=== PATIENT | male | born 1955 | race Caucasian/White ===

== ENCOUNTER 2024-05-05 21:25 | Emergency (ER) | payer MEDICARE, OTHER ==
[2024-05-05] MEDS: Lactated Ringers 1,000 ML IV SCH (22:15)
[2024-05-05 22:23] LABS: BASOPHILS ABSOLUTE AUTO 0.03 K/uL (0.00-0.10); BASOPHILS PERCENT AUTO 0.2 % (0.1-1.3); EOSINOPHILS PERCENT AUTO 0.1 % (0.0-5.4); HEMOGLOBIN 12.1 g/dL (12.9-16.9); IMMATURE GRAN ABSOLUTE AUTO 0.05 K/uL (0.00-0.23); IMMATURE GRAN PERCENT AUTO 0.4 % (0.0-0.7); LYMPHOCYTES ABSOLUTE AUTO 0.89 K/uL (0.8-3.3); LYMPHOCYTES PERCENT AUTO 7.3 % (11.4-47.7); MEAN CORPUSCULAR HEMOGLOBIN 33.6 pg (31.6-35.5); MEAN CORPUSCULAR HGB CONC 35.6 g/dL (31.6-35.5); MEAN CORPUSCULAR VOLUME 94.4 fL (81.4-99.0); MONOCYTES ABSOLUTE AUTO 0.88 K/uL (0.20-0.90); MONOCYTES PERCENT AUTO 7.2 % (3.3-12.6); NEUTROPHILS PERCENT AUTO 84.8 % (40.0-78.1); PLATELET COUNT,PLT 169 K/uL (130-375); WHITE BLOOD CELL COUNT,WBC 12.2 K/uL (3.2-11.0)
[2024-05-05 22:24] LABS: EOSINOPHILS ABSOLUTE AUTO 0.01 K/uL (0.00-0.40)
[2024-05-05 22:54] LABS: ALANINE AMINOTRANSFERASE,ALT 47 U/L (12-78); ALBUMIN 3.6 g/dL (3.4-5.0); ALKALINE PHOSPHATASE 118 U/L (46-116); ASPARTATE AMNIOTRANSFERASE,AST 99 U/L (15-37); BILIRUBIN TOTAL 0.5 mg/dL (0.2-1.0); BLOOD UREA NITROGEN,BUN 59 mg/dL (7-18); CALCIUM 9.4 mg/dL (8.5-10.1); CARBON DIOXIDE,CO2 23 mmol/L (21-32); CHLORIDE,CL 98 mmol/L (100-108); EST CRCL DRUG DOSING (CG) 13.09 mL/min; ESTIMATED GFR 11 mL/min (>60); GLUCOSE RANDOM 123 mg/dL (74-106); PROTEIN TOTAL,TP 7.1 g/dL (6.4-8.2); SODIUM,NA 135 mmol/L (140-148); TROPONIN I HIGH SENSITIVITY 10.3 pg/mL (<=60.3)
[2024-05-05 22:56] LABS: CREATININE 5.5 mg/dL (0.8-1.3)
[2024-05-05] MEDS: Sodium Chloride 0.9% 1,000 ML IV SCH (23:30)
[2024-05-05] MEDS: Alum Hydrox/Mag Hydrox/Simeth 15 ML, Lidocaine 2% 15 ML PO ONE (23:30)
[2024-05-05] MEDS: Calcium Carbonate 500 MG Tab.Chew PO ONE (23:35)
[2024-05-06 00:25] LABS: EST CRCL DRUG DOSING (CG) 13.58 mL/min
[2024-05-06 00:26] LABS: CREATININE 5.3 mg/dL (0.8-1.3)
== END 2024-05-06 00:58 | disposition home or self-care (01) ==
LOC: MERGE 21:25 → EDBD 21:25 → JP.ED 21:25
DX: I12.0 Hypertensive chronic kidney disease with stage 5 chronic kidney disease or end stage renal disease (principal); N17.9 Acute kidney failure, unspecified; N18.5 Chronic kidney disease, stage 5; E78.00 Pure hypercholesterolemia, unspecified; I48.91 Unspecified atrial fibrillation; J44.9 Chronic obstructive pulmonary disease, unspecified; Z86.16 Personal history of COVID-19; Z87.891 Personal history of nicotine dependence; Z79.899 Other long term (current) drug therapy; Z79.01 Long term (current) use of anticoagulants; Z88.0 Allergy status to penicillin
CPT/HCPCS: 36415; 80053; 82565; 83605; 84484; 85025; 93005; 96360; 96361; 99285; A9270; J7030; J7120